=== PATIENT | female | born 1975 | race Caucasian/White ===

== ENCOUNTER 2016-11-05 13:14 | Day surgery (SDC) | payer MEDICAID, OTHER ==
[~2016-11-05] VITALS: Ht 152.4 cm; Wt 60.4 kg
[2016-11-05] MEDS ORDERED: OMEPRAZOLE PO (13:41)
[2016-11-05 13:51] VITALS: Ht 152.4 cm; Wt 60.4 kg
[2016-11-05 14:42] VITALS: BP 92/55; PULSE 57; RESP 14
--- NOTE | 2016-11-05 15:39 | OPPN ---
Date/Time of Note Date/Time of Note DATE: 11/05/16 TIME: 15:34 Proc Note GI Free Text/Dictation Preoperative Diagnosis: Dyspepsia Postoperative Diagnosis: * Mild gastritis. Rule out H. pylori infection. Biopsies obtained * Probable non-ulcer dyspepsia Plan: * Continue PPI * Trial of Bentyl 20 mg before meals 3 times daily Procedure Performed: EGD with biopsies Surgeon: Jewel Lewis MD Manager Procurement: None Second Whip Sawyer: None Anesthesia/Sedation: Versed 3 mg/fentanyl 75 mcg administer IV push Tourniquet Time: NA Estimated Blood Loss: 0 Transfusion Required: No Specimens: Gastric body and antrum Grafts/Implants: None Tubes/Drains: NA Complications: None Pt. Condition Post Procedure: Stable Disposition: Home After informed consent, with the patient/relatives understanding the procedure, its indications, potential risks and complications, including but not limited to : allergic reaction, bleeding, perforation or infection, and after all pertinent questions were answered to the patients satisfaction, the patient/ relatives signed witnessed informed consent. Following this, premedication was administered slowly IV push under careful cardiovascular and respiratory monitoring with pulse oximetry, automatic blood pressure, and coin rolling machine operator. Once the sedative effect was achieved the patient was place in the left lateral decubitus, the panendoscope was introduced and advanced under visual control. Careful examination of the upper gastrointestinal tract, both on insertion as well as withdrawal of the instrument disclosing the following findings: Esophagus: the mucosa of the entire esophagus was carefully examined and showed the following findings: [the mucosa appears within normal limits. There is no evidence of esophagitis, varices, neoplasm, or stricture. No Hiatal Hernia identified.] Stomach: Upon entrance to the stomach air was insufflated, the gastric luna distended normally. The mucosa of the fundus, body and antrum of the stomach was carefully examined both head-on and on retroflexion, and showed the following findings: There is mild erythema of the mucosa of the body and antrum of the stomach. Biopsies were obtained to rule out H follow infection. Otherwise the mucosa appears within normal limits with no abnormalities. There is no evidence of gastritis, ulcers or neoplasm.] Pylorus: The pylorus was carefully examined and showed the following findings: [ the pylorus appears patent and within normal limits, with no evidence of gastric outlet obstruction.] Duodenum: The duodenal mucosa was carefully examined in the duodenal bulb as well as the second portion of the duodenum and showed the following findings: [ the mucosa appears unremarkable with no evidence of duodenitis, ulcer or neoplasm.] Procedure date: Nov 05, 2016 JEWEL LEWIS MD Nov 05, 2016 15:38
[2016-11-05] MEDS ORDERED: FENTAnyl 50 MCG/ML VIAL ONE (16:05)
[2016-11-05] MEDS ORDERED: MIDAZOLAM 1 MG/ML 2 ML INJ ONE ×2 (16:05)
[2016-11-05 16:20] VITALS: BP 102/58; PULSE 58; RESP 14
== END 2016-11-05 16:00 | disposition home or self-care (01) ==
LOC: GIL 13:14
PROVIDERS: ATTEND Internal Medicine Gastroenterology
DX: K29.50 Unspecified chronic gastritis without bleeding (principal)
CPT/HCPCS: 43239; 84703; 88305; 88312; J2250; J3010; Z7610